=== PATIENT | female | born 1975 | race Caucasian/White ===

== ENCOUNTER 2023-07-31 11:45 | Emergency (ER) | payer OTHER, SELFPAY ==
[2023-07-31 11:55] VITALS: BP 121/74; PULSE 105; RESP 16; TEMP 36.7; O2SAT 98
--- NOTE | 2023-07-31 12:07 | ED.NAVMDI ---
HPI - Nausea/Vomiting/Diarrhea General Chief complaint: Nausea/Vomiting/Diarrhea Stated complaint: Nausea Time Seen by Provider: 07/31/23 12:00 Source: patient Mode of arrival: ambulatory Limitations: no limitations History of Present Illness HPI Narrative: Kyra is a 48-year-old female patient presenting to the clinic today with complaints of nausea, vomiting, and diarrhea since midnight last night. She reports she was vomiting approximately every 30 minutes but now it has moved to about every hour. Is not able to keep any fluids down at this time. She denies any fever, chills, or body aches. Is having some abdominal cramping but denies any other abdominal pain. No urinary symptoms or vaginal discharge. Related Data Allergies Allergy/AdvReac Type Severity Reaction Status Date / Time Penicillins Allergy Unknown Rash Verified 07/31/23 12:00 Review of Systems Review of Systems: Pertinent positives per HPI. Patient denies any fever, chills, rash, headache, visual changes, dizziness, cough, runny nose, sore throat, shortness of breath, chest pain, palpitations, nausea, vomiting, diarrhea, constipation, abdominal pain, or any urinary issues. PMFSH Comments At the time of my signature, I reviewed and agree with the nursing past medical, surgical, social, and family history. There is no relevant family history pertinent to the patient complaint. Exam Narrative: General: Well-developed, well nourished, pale appearing Head: Normocephalic, atraumatic Eyes: Pupils equally round and reactive to light bilaterally, EOM intact, sclera and conjunctive clear, no discharge, lids normal Ears: TMs intact and clear, ear canals clear, no drainage, grossly hearing normal. Nose: Nares patent, no discharge, no inflammation, no sinus tenderness. Mouth: Oropharynx without lesions or masses, good dentition, MMD. Neck: Supple, trachea midline, no enlargement of anterior or posterior cervical nodes, no thyroid masses or goiter palpable. Cardio: Regular rate and rhythm, s1 and s2 normal, no murmur appreciated. Resp: Clear to auscultation bilaterally anteriorly and posteriorly, no rhonchi, rales, wheezing or rubs Abdomen: Soft, pliable, bowel sounds present in all quadrants, nontender to palpation- just nausea feeling, no organomegly, no CVAT tenderness. Course Course Emergency Course: Portions of this record may have been created with voice recognition software. Level of Care: Express Care Visit Vital Signs Vital signs: Vital Signs Temperature 36.7 C 07/31/23 11:55 Pulse Rate 105 H 07/31/23 11:55 Respiratory Rate 16 07/31/23 11:55 Blood Pressure 121/74 07/31/23 11:55 Pulse Oximetry 98 07/31/23 11:55 Oxygen Delivery Room Air 07/31/23 11:55 Temperature 36.7 C 07/31/23 11:55 Pulse Rate 105 H 07/31/23 11:55 Respiratory Rate 16 07/31/23 11:55 Blood Pressure 121/74 07/31/23 11:55 Pulse Oximetry 98 07/31/23 11:55 Oxygen Delivery Room Air 07/31/23 11:55 Vital signs reviewed MDM - Nausea/Vomiting/Diarrhea MDM Narrative Medical decision making narrative: At the time of visit patient is resting comfortably on the exam table. Zofran 8 mg ODT given in the clinic today. P.o. challenge was given. No vomiting or diarrhea occurred while in the clinic today. Influenza testing was negative. Patient reports she is feeling well enough to go home. Supportive measures were discussed with the patient she voiced understanding discharge instructions and agrees to treatment plan. Differential Diagnosis Differential diagnosis: Likely traveler's diarrhea, food poisoning, gastroenteritis, dehydration and other (Influenza) Discharge Plan Discharge Clinical Impression: Gastroenteritis Patient Disposition: Home, Self-Care Condition: Stable Instructions: Antibiotic Form, Gastroenteritis (ED) Additional Instructions: Influenza testing was negative in the clinic today. Take prescription me
[2023-07-31] MEDS: ONDANSETRON HCL ODT 4 MG TABLET 8 MG SUBLINGUAL (12:13)
== END 2023-07-31 13:33 | disposition home or self-care (01) ==
PROVIDERS: Emergency Provider Nurse Practitioner Family
DX: K52.9 Noninfective gastroenteritis and colitis, unspecified (principal)
CPT/HCPCS: 87804; 99213; A9270; G0463

== ENCOUNTER 2024-04-05 12:52 | Emergency (ER) | payer OTHER, SELFPAY ==
[2024-04-05 13:08] VITALS: BP 146/78; PULSE 84; RESP 16; TEMP 36.2; O2SAT 100
[2024-04-05 13:09] LABS: Glucose Point of Care 80 mg/dl (65-105)
--- NOTE | 2024-04-05 13:11 | ECG_ITS ---
Test Date: 2024-04-05 13:37:40 Measurements Intervals [place] Rate: 77 P: 68 OR: 122 QRS: 44 QRSD: 85 T: 29 QT: 373 QTc: 423 Interpretive Statements SINUS RHYTHM NORMAL ELECTROCARDIOGRAM No previous ECG available for comparison Electronically Signed On 04-05-2024 15:56:50 CDT by Marco Sanchez M.D.
--- NOTE | 2024-04-05 13:11 | ED.DIZZY ---
HPI - Dizziness General Chief Complaint: Dizziness Stated Complaint: lightheaded Source: patient and RN notes reviewed Mode of arrival: ambulatory Limitations: no limitations History of Present Illness HPI Narrative: 48 y/o female presented for c/o dizziness for 1 week, which she reports was manageable but worse today. Pt denies room spinning. States she feels week and shaky, and nauseated. denies new meds, travel, or sick contacts. Pt is currently on menses. denies flu-like symptoms. Pt has history of mitral valve prolapse. Related Data Home Medications Medication Instructions Recorded Confirmed No Home Medications 04/05/24 04/05/24 Allergies Allergy/AdvReac Type Severity Reaction Status Date / Time Penicillins Allergy Unknown Rash Verified 04/05/24 13:46 Review of Systems Review of Systems: CONSTITUTIONAL: Reports feeling weak and shaky Denies body aches, fever, chills, or sweats. EYES: Denies visual changes, redness, or discharge. ENT: Denies rhinorrhea, congestion, sore throat, or otalgia. CARDIOVASCULAR: Denies chest pain, palpitations, or edema. RESPIRATORY: Denies cough or dyspnea. GASTROINTESTINAL: Denies abdominal pain, vomiting, or diarrhea. GENITOURINARY: Denies dysuria or hematuria. SKIN: Denies rash, itching, or wounds. MUSCULOSKELETAL: Denies back pain, joint pain, or myalgia. NEUROLOGIC: Endorses lightheadedness denies headache, numbness, tingling, or weakness All systems reviewed & are unremarkable except as noted in HPI and below PMFSH Comments At time of signature, I have reviewed and agree with nursing past medical, surgical, social and family history unless otherwise noted. Please see nursing chart for further information. There is no relevant family history pertinent to the presenting complaint Exam Narrative: GENERAL: mildly ill-appearing HEAD: Normocephalic, atraumatic. EYES: PERRLA, EOMI. ENT: Mucous membranes pink and moist. No rhinorrhea. TMs normal bilaterally. NECK: Normal AROM. Supple. No lymphadenopathy. CHEST: No respiratory distress. Clear to auscultation. HEART: Regular rate and rhythm. No murmur appreciated. Normal peripheral pulses. ABDOMEN: Soft, nontender, nondistended, normal active bowel sounds. EXTREMITIES: Normal range of motion. No edema. SKIN: Warm, dry, no rash. Capillary refill normal. Normal skin turgor. NEURO:No focal deficits. Alert and oriented x3. Finger to nose intact bilaterally. EOMs intact without nystagmus. No facial droop/asymmetry noted bilaterally. Grimace intact. Intact sensation in face. Hearing intact bilaterally. Shoulder shrug intact. Strength 5/5 bilateral upper extremities. Ambulatory exam with a normal based, steady gait. PSYCH: Normal affect. Course Course Emergency Course: Patient is aware of diagnosis, understands and agrees to treatment plan. Anticipatory guidance given. Patient agrees to follow-up as directed and is aware of reasons to seek care at the emergency department. Portions of this record may have been created with voice recognition software Level of Care: Express Care Visit Vital Signs Vital signs: Vital Signs Temperature 97.2 F L 04/05/24 13:08 Pulse Rate 84 04/05/24 13:08 Respiratory Rate 16 04/05/24 13:08 Blood Pressure 146/78 H 04/05/24 13:08 Pulse Oximetry 100 04/05/24 13:08 Temperature 97.2 F L 04/05/24 13:08 Pulse Rate 84 04/05/24 13:08 Respiratory Rate 16 04/05/24 13:08 Blood Pressure 146/78 H 04/05/24 13:08 Pulse Oximetry 100 04/05/24 13:08 Transfer Transfered to: [facility] Transportation: Other (private vehicle) Transfer rationale: Pt is agreeable to transfer. Requests transfer to hospital via private vehicle. Risks of transportation reviewed with pt including injury, worsening of condition and . v/u. will be driving pt; Report called to hospital, spoke with Chloe NASH, accepting physician was not provided by charge histotechnologist. Pt is in sta
== END 2024-04-05 13:50 | disposition short-term general hospital (02) ==
LOC: EXPGOSH 12:54
PROVIDERS: Emergency Provider Nurse Practitioner Family
DX: R42 Dizziness and giddiness (principal); Z20.822 Contact with and (suspected) exposure to COVID-19; R01.1 Cardiac murmur, unspecified; I34.1 Nonrheumatic mitral (valve) prolapse
CPT/HCPCS: 82948; 87426; 87804; 93005; 99213; G0463

== ENCOUNTER 2025-08-29 16:10 | Emergency (ER) | payer OTHER, SELFPAY ==
--- NOTE | ~2025-08-29 | XR_ITS ---
EXAMINATION: XR chest 2V DATE: 08/29/2025 18:12 INDICATION: Palpitation. TECHNIQUE: Frontal and lateral views of the chest were obtained. COMPARISON: Chest x-ray dated 05/29/2015 FINDINGS: The heart size is normal. Lungs are free of acute process. Jayne and mediastinum are normal. IMPRESSION: 1. No acute findings. Reviewed, dictated and finalized at location T. ECTION AND TESTING SUPERVISOR IMPRESSION: 1. No acute findings.
[2025-08-29 16:08] VITALS: BP 156/64; PULSE 98; RESP 18; TEMP 36.8; O2SAT 100
--- NOTE | 2025-08-29 16:43 | ECG_ITS ---
Test Date: 2025-08-29 16:56:33 Measurements Intervals [place] Rate: 85 P: 71 PA: 149 QRS: 31 QRSD: 85 T: 29 QT: 369 QTc: 439 Interpretive Statements SINUS RHYTHM MODERATE ST DEPRESSION [0.05+ mV ST DEPRESSION] Compared to ECG 04/05/2024 13:37:40 ST (T wave) deviation now present Electronically Signed On 08-29-2025 19:08:54 MEDICAL INSURANCE CLERK by Marietta Us M.D.
--- OUTSIDE RECORDS SUMMARY | 2025-08-29 16:48 | XMS_ITS | Clinical Summary ---
[facility] Address [address] [place] [address] Phone Care Team Providers Care Environmental Compliance Inspector Name Role Phone George Sexton MD Primary Care Provider [phone] Allergies Active Allergy Reactions Criticality Noted Date Comments Penicillins Unknown 08/09/2016 Medications No known medications Active Problems Problem Noted Date Diagnosed Date Increased risk of breast cancer 2019 Anxiety 2019 History of breast biopsy 2019 Dense breast tissue 2019 Family history of breast cancer 2019 Family History Medical History Relation Name Comments Breast Cancer Maternal Aunt Relation Name Status Comments Maternal Aunt Social History Tobacco Use Types Packs/Day Years Used Date Smoking Tobacco: Never Smokeless Tobacco: Never Alcohol Use Standard Drinks/Week Comments Yes 0 (1 standard drink = 0.6 oz pur e alcohol) Comments Unknown Sex and Gender Information Value Date Recorded Sex Assigned at Not on file Legal Sex Female 11:00 AM CDT Gender Identity Not on file Sexual Orientation Not on file Occupation Industry Job Start Date Job End Date nurse Not on file Not on file Not on file Last Filed Vital Signs Vital Sign Reading Time Taken Comments Blood Pressure 120/78 2019 10:24 AM CDT Pulse - - Temperature 36.8 C (98.3 F) 2019 10:24 AM CDT Respiratory Rate - - Oxygen Saturation - - Inhaled Oxygen Concentration - - Weight 62.1 kg (136 lb 12.8 oz) 019 10:24 AM CDT Height 170.2 cm (5' 7) 2019 10:2 4 AM CDT Body Mass Index 21.43 2019 10:24 AM CDT Plan of Treatment Health Maintenance Due Date Last Done Comments DTAP/TDAP/TD VACCINES (1 - Tdap) 1995 HEPATITIS B VACCINES (1 of 3 - 19+ 3-dose series) 1995 HPV/Cotest (21-29) 1997 CERVICAL CANCER SCREENING 2006 HPV/Cotest (30-65) 2006 PAP SMEAR 2006 BREAST CANCER SCREENING 11/25/2020 11/25/19 20, 12/05/2018, 11/15/2017, Additional history exists COLORECTAL SCREENING 2021 Colorectal Cancer Screening 2021 FIT-DNA Q 3 years 2021 FIT/FOBT Q 1 year 2021 Flex Sig/CT Colonography Q 5 years 2021 INFLUENZA VACCINE (#1) 2025 Procedures Procedure Name Priority Date/Time Associated Diagnosis Comments MAMMO 3D VIN SCREEN BILAT W OR WO CAD Routine 11/25/2019 12:24 PM PROJECTION CAMERA OPERATOR Breast cancer screening by mammogram from Last 3 Months or Most Recently Relevant to Health Maintenance Results * MAMMO SCRN BILAT 3D VIN W OR WO CAD (11/25/2019 12:24 PM PROJECTION CAMERA OPERATOR) Anatomical Region Laterality Modality Breast Bilateral Mammography 11/25/2019 12:2 4 PM PROJECTION CAMERA OPERATOR Impressions 11/25/2019 2:09 PM PROJECTION CAMERA OPERATOR IMPRESSION: Normal screening mammogram. OVERALL FINAL ASSESSMENT: BI-RADS CATEGORY 1 - Negative Recommend annual screening mammography. DICTATION LOCATION: [facility] 11/25/2019 2:09 PM PROJECTION CAMERA OPERATOR EXAM: BILATERAL SCREENING DIGITAL MAMMOGRAM WITH 3D TOMOSYNTHESIS AND CAD 11/25/2019 INDICATION: Screening. COMPARISON STUDIES: 12-05-18 through 07-27-16 PARENCHYMAL COMPOSITION: Extremely dense FINDINGS: There is no concerning mass, asymmetry, malignant microcalcification or area of architectural distortion in either breast. There is no change when compared to previous mammograms. Computer aided diagnosis was utilized. 3D tomosynthesis performed in 4 standard projections reveals no evidence of architectural distortion or mass. Procedure Note Alejandro Warren MD - 11/25/2019 EXAM: BILATERAL SCREENING DIGITAL MAMMOGRAM WITH 3D TOMOSYNTHESIS AND CAD 11/25/2019 INDICATION: Screening. COMPARISON STUDIES: 12-05-18 through 07-27-16 PARENCHYMAL COMPOSITION: Extremely dense FINDINGS: There is no concerning mass, asymmetry, malignant microcalcification or area of architectural distortion in either breast. There is no change when compared to previous mammograms. Computer aided diagnosis was utilized. 3D tomosynthesis performed in 4 standard projections reveals no evidence of architectural distortion or mass. IMPRESSION: Normal screening mammogram. OVERALL FINAL ASSESSMENT: BI-RADS CATEGORY 1 - Negative Recommend annual screening mammography. DICTATION LOCATION: [facility] Genny England MD MAMMO ORDERABLES Final Result from Last 3 Months or Most Recently Relevant to Health Maintenance Insurance OPTIONS PPO [id number] Member Subscriber Plan / Payer (Ef fective 2021-Present) Name:Justo Beverly Relation to Subscriber:Spouse Name:ONEIL KEMP Date of :1971 (Home) Address: [address] [place] [id number] Payer ID:[id number] (NAIC) Type:PPO Address: [facility] [id number] [place] [id number] Care Teams Environmental Compliance Inspector Relationship Specialty Start Date End Date George Sexton MD [address] [place] [id number] PCP - General Family Practice 07/21/16
[2025-08-29 17:04] VITALS: BP 141/75; PULSE 84; RESP 16; O2SAT 100
[2025-08-29 17:07] LABS: Hematocrit 37.9 % (37.0-47.0); Hemoglobin 12.3 g/dL (12.0-15.0); Immature Granulocyte Percent A 0.3 % (0-0.5); Lymphocytes Absolute Auto 1.50 K/mm3 (0.9-3.2); Mean Corpuscular HGB Conc 32.5 g/dl (32-36); Mean Corpuscular Hemoglobin 27.3 pg (26-34); Mean Corpuscular Volume 84.2 fl (80-100); Nucleated Red Blood Cells Absolute Auto 0.000 K/mm3 (0.0-0.012); Nucleated Red Blood Cells Perc 0.0 % (0.0-0.2); Platelet Count Result 302 k/mm3 (150-375); Red Blood Count 4.50 M/mm3 (4.2-5.4); White Blood Count 9.1 K/mm3 (4.5-10.0)
[2025-08-29 17:25] LABS: INR 1.0; Partial Thromboplastin Time 28.7 Seconds (22.3-36.8); Prothrombin Time 13.1 Seconds (11.1-14.7)
[2025-08-29 17:31] LABS: Alanine Aminotransferase 15 U/L (6-35); Albumin Level 4.4 g/dL (3.5-5.1); Alkaline Phosphatase 83 U/L (38-126); Anion Gap 8 mmol/L (4-12); Aspartate Amino Transferase 29 U/L (14-36); Bilirubin,Total 0.7 mg/dL (0.2-1.3); Blood Urea Nitrogen 8 mg/dL (7-17); Calcium 9.1 mg/dL (8.4-10.2); Carbon Dioxide 24 mmol/L (22-30); Chloride 104 mmol/L (98-107); Estimated CRCL calculation 96 ml/min; Estimated Glomerular Filt Rate > 60; Glucose 111 mg/dL (65-110); Potassium 3.5 mmol/L (3.4-5.0); Sodium 136 mmol/L (137-145); Total Protein 7.6 g/dL (6.3-8.2)
[2025-08-29 17:38] LABS: NT Pro B Type Natriuretic Pept 131 pg/mL (19.9-100)
[2025-08-29 17:54] LABS: Thyroid Stimulating Hormone Reflex 1.590 uIU/mL (0.465-4.68)
--- NOTE | 2025-08-29 18:10 | ED_ITS ---
HPI - Arrhythmia/Palpitations General Chief Complaint: Arrhythmia/Palpitations Stated Complaint: rapid heart rate - resolved Time Seen by Provider: 08/29/25 16:13 History of Present Illness HPI narrative: Patient is a 50-year-old female who presents ER with an abnormal feeling in her chest. For about 3 seconds she felt a hard thud in her left chest and felt weak and abnormal afterwards. She has had it happen a few other times. She does not feel like her heart is beating fast. No history of ectopy or arrhythmia in the past. No high caffeine abuse but did have her typical amount of coffee earlier today. Denies any sleep changes. No drug or alcohol use. She is not on any supplements or weight loss medications. No vitamins. She is otherwise healthy. No pain with deep breath or cough or dyspnea. Related Data Home Medications ?Medication ?Instructions ?Recorded ?Confirmed ?Last Taken ?Type No Home Medications 04/05/24 04/05/24 U nknown History Allergies Allergy/AdvReac Type Severity Reaction Status Date / Time Penicillins Allergy Unknown Rash Verified 08/29/25 16:19 Review of Systems 2 Review of Systems: All systems reviewed & are unremarkable except as noted in HPI and below Constitutional: Constitutional: Reports no additional constitutional complaints ENT: Reports system reviewed and no additional complaints, except as documented Cardiovascular: Cardiovascular: Reports no additional cardiovascular complaints Respiratory: Respiratory: Reports no additional respiratory complaints PMFSH Past Medical History Medical History (Updated 08/29/25 @ 18:18 by Alejandro Cervantes MD) Mitral valve prolapse Surgical History Surgical History (Updated 08/29/25 @ 18:12 by Alejandro Cervantes MD) No pertinent past surgical history Exam 2 Narrative: GENERAL: Anxious-appearing, well-nourished, and in no acute distress. HEAD: Normocephalic, atraumatic. ENT: Mucous membranes moist. NECK: Supple. CHEST: Clear to auscultation. No respiratory distress. HEART: Regular rate and rhythm. Click from mitral valve prolapse noted. Normal peripheral pulses. ABDOMEN: Soft, nontender, nondistended. EXTREMITIES: Normal range of motion. No edema. SKIN: Warm, dry, no rash. NEURO: Alert and oriented x3. PSYCH: Normal mood and affect. Course Course Emergency Course: Patient did have some symptoms in the ER in the correlated with premature atrial contractions on the monitor. Patient informed of lab and imaging results. We discussed the diagnosis and treatment plan going forward. Patient verbalized understanding. She will be discharged home. Vital Signs Vital signs: Vital Signs Temperature 98.2 F 08/29/25 16:08 Pulse Rate 98 08/29/25 16:08 Respiratory Rate 18 08/29/25 16:08 Blood Pressure 156/64 H 08/29/25 16:08 Pulse Oximetry 100 08/29/25 16:08 Oxygen Delivery Room Air 08/29/25 16:08 Temperature 98.2 F 08/29/25 16:08 Pulse Rate 84 08/29/25 17:04 Respiratory Rate 16 08/29/25 17:04 Blood Pressure 141/75 H 08/29/25 17:04 Pulse Oximetry 100 08/29/25 17:04 Oxygen Delivery Room Air 08/29/25 16:08 MDM - Arrhythmia/Palpitations Differential Diagnosis Differential diagnosis: Likely palpitations, anxiety, sinus tachycardia, artial fibrillation, artial flutter, ventricular premature beats, supraventricular tachycardia and ventricular tachycardia Lab Data Attestation: I reviewed the patient's lab results. 08/29/25 17:01 08/29/25 17:01 Labs: Lab Results 08/29/25 Range/Units 17:01 WBC 9.1 (4.5-10.0) K/mm3 RBC 4.50 (4.2-5.4) M/mm3 Hgb 12.3 (12.0-15.0) g/dL Hct 37.9 (37.0-47.0) % MCV 84.2 (80-100) fl MCH 27.3 (26-34) pg MCHC 32.5 (32-36) g/dl RDW 14.3 (11.5-14.5) % Plt Count 302 (150-375) k/mm3 MPV 9.6 (7.4-10.4) fl Immature Gran % (Auto) 0.3 (0-0.5) % Neut % (Auto) 77.9 H (45.5-73.1) % Lymph % (Auto) 16.5 L (18.3-44.2) % Desha % (Auto) 4.7 (2.6-8.5) % Eos % (Auto) 0.2 (0-4.4) % Baso % (Auto) 0.4 (0.2-1.2) % Lymph # (Auto) 1.50 (0.9-3.2) K/mm3 Desha # (Auto) 0.4 (0.1-0.6) K/mm3 Eos # (Auto) 0.0 (0-0.3) K/mm3 Baso # (Auto) 0.0 (0.0-0.1) K/mm3 Abs Immat Gran (auto) 0.03 (0.00-0.031) K/mm3 Absolute Neuts (auto) 7.1 H (1.3-6.7) K/mm3 Absolute Nucleated RBC 0.000 (0.0-0.012) K/mm3 Nucleated RBC % 0.0 (0.0-0.2) % PT 13.1 (11.1-14.7) Seconds INR 1.0 APTT 28.7 (22.3-36.8) Seconds D-Dimer < 0.27 (<0.48) ug/mL Sodium 136 L (137-145) mmol/L Potassium 3.5 (3.4-5.0) mmol/L Chloride 104 (98-107) mmol/L Carbon Dioxide 24 (22-30) mmol/L Anion Gap 8 (4-12) mmol/L BUN 8 (7-17) mg/dL Creatinine 0.61 L (0.7-1.0) mg/dL Estim Creat Clear Calc 96 ml/min Estimated GFR > 60 (59 - ) Glucose 111 H (65-110) mg/dL Calcium 9.1 (8.4-10.2) mg/dL Total Bilirubin 0.7 (0.2-1.3) mg/dL AST 29 (14-36) U/L ALT 15 (6-35) U/L Alkaline Phosphatase 83 (38-126) U/L NT-Pro-B Natriuret Pep 131 H (19.9-100) pg/mL Total Protein 7.6 (6.3-8.2) g/dL Albumin 4.4 (3.5-5.1) g/dL TSH (Reflex) 1.590 (0.465-4.68) uIU/mL Imaging Data Radiologist's impression: ITS Impressions Chest X-Ray 08/29/25 18:13 IMPRESSION: 1. No acute findings. ECG Data EKG #1: ECG completion date: 08/29/25 ECG completion time: 16:56 EKG Interpretation: normal rate (85), sinus rhythm, non-specific ST changes, normal QRS and normal QT Discharge Plan Discharge Clinical Impression: Atrial contractions, premature Patient Disposition: Home Condition: Stable Instructions: Antibiotic Form, Premature Atrial Contractions (ED) Additional Instructions: Please return to the emergency department if you develop severe and persistent chest pain, difficulty breathing, dizziness, leg swelling or if you are coughing up blood as these can be signs of a medical emergency. Please call your doctor for a follow up appointment to determine the need for further testing. Patient Language: Nam[place]ian Prescriptions: No Action No Home Medications Follow-up/Referrals: PHYSICIAN,RESIDENTIAL LIFE DIRECTOR [Primary Care Provider, Internal Medicine]
[2025-08-29 18:40] VITALS: BP 124/82; PULSE 92; RESP 16; O2SAT 99
== END 2025-08-29 19:01 | disposition home or self-care (01) ==
PROVIDERS: Emergency Provider Emergency Medicine
DX: I49.1 Atrial premature depolarization (principal)
CPT/HCPCS: 36415; 71046; 80053; 83880; 84443; 85025; 85380; 85610; 85730; 93005; 99283